=== PATIENT | female | born 1990 | race Caucasian/White ===

== ENCOUNTER 2017-11-20 13:02 | Emergency (ER) | payer OTHER, BC ==
[~2017-11-20] VITALS: Ht 165.1 cm; Wt 138.2 kg
[2017-11-20 13:05] VITALS: TEMP 36.8; Ht 165.1 cm; Wt 138.2 kg
[2017-11-20] MEDS ORDERED: IBUPROFEN 600 MG TAB PO STA (13:29)
--- NOTE | 2017-11-20 14:06 | DIAGNOSTIC IMAGING REPORT ---
L RIBS UNILATERAL WITH PA CHEST CLINICAL HISTORY: 27 years-old Female presenting with L rib pain - heavy lifting. TECHNIQUE: Frontal and oblique views of the left ribs as well as PA view of the chest were obtained. COMPARISON: None. FINDINGS: Cardiomediastinal silhouette normal. Lungs and pleural spaces clear. Upper abdomen normal. No displaced left rib fracture. IMPRESSION: 1. No acute cardiopulmonary disease. 2. No displaced left rib fracture. Electronically signed by: Rajinder Ramirez M.D. 11/20/2017 2:04 PM Dictated Date/Time: 11/20/2017 1:58 PM
[2017-11-20 14:17] VITALS: BP 133/89; PULSE 78; O2SAT 97
--- NOTE | 2017-11-20 14:21 | EMERGENCY ROOM VISIT NOTE ---
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 The patient reports that at approximately 2 AM, she was attempting to lift a gentleman at the [facility]. She reports that he is a heavy gentleman, and has to both lift and pull the patient up to an upright position. The patient reports immediate onset of left chest wall discomfort. She reports that the pain has somewhat worsened. The pain is worsened with movement and reaching overhead. She has not noticed any shortness of breath. She denies any pain extending into the neck, abdomen or back. She does complain of some mild discomfort around the left shoulder blade as well. She currently rates her discomfort a 3 out of 10 that is quickly elevated to a 7 out of 10 with movement or use of the arm. Review of Systems 10 system review was performed and was negative except for pertinent positives and negatives as indicated in history of present illness Past Medical/Surgical History Medical Problems: (1) No significant past medical history Surgical Problems: (1) History of wisdom tooth extraction Family History FH: cancer FH: diabetes mellitus FH: heart disease FH: hypertension FH: kidney disease Social History Smoking Status: Current Every Day Smoker Alcohol Use: none Marital Status: Housing Status: lives with family Occupation Status: employed Current/Historical Medications No Active Prescriptions or Reported Meds Physical Exam Vital Signs Date Time Temp Pulse Resp B/P (MAP) Pulse Ox O2 Delivery O2 Flow Rate FiO2 11/20/17 14:17 78 133/89 97 Room Air 11/20/17 13:05 36.8 89 20 130/78 100 Room Air Physical Exam CONSTITUTIONAL: Morbidly obese female, alert and oriented X 3 with positive affect. Patient appears in mild discomfort from pain. HEENT: Normocephalic, atraumatic. Pupils equal, round and reactive. NECK: Full active range of motion without discomfort. No tenderness to palpation through the central cervical spine or cervical musculature. RESPIRATORY: Clear to auscultation bilaterally with no wheezing, crackles, rhonchi or stridor. The breathing does not appear to cause any worsening discomfort. CARDIOVASCULAR: Regular rate and rhythm with no murmurs, rubs or gallops. GASTROINTESTINAL: Bowel sounds present in all quadrants. Protuberant but soft and nontender to palpation. 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 She has mild discomfort under the left breast as well as left interscapular region. Patient has no other tenderness to palpation through the clavicle, acromioclavicular joint or bicipital groove. Patient has no significant worsening pain with range of motion of the left shoulder. INTEGUMENTARY: No rash or other significant dermatologic conditions noted. NEUROLOGIC: No focal neurologic deficits noted. Left upper extremity is sensory intact. Medical Decision & Procedures ER Provider Diagnostic Interpretation: My interpretation of left rib x-rays with a PA chest view does not show any obvious rib fractures or pneumothorax. Radiologist report is as follows: L RIBS UNILATERAL WITH PA CHEST CLINICAL HISTORY: 27 years-old Female presenting with L rib pain - heavy lifting. TECHNIQUE: Frontal and oblique views of the left ribs as well as PA view of the chest were obtained. COMPARISON: None. FINDINGS: Cardiomediastinal silhouette normal. Lungs and pleural spaces clear. Upper abdomen normal. No displaced left rib fracture. IMPRESSION: 1. No acute cardiopulmonary disease. 2. No displaced left rib fracture. Medications Administered Medications (Trade) Dose Ordered Sig/Camelia Route Start Time Stop Time Status Last Admin Dose Admin Ibuprofen (Motrin Tab) 600 mg NOW STAT PO 11/20/17 13:29 11/20/17 13:30 DC 11/20/17 13:36 600 MG ED Course Patient history and physical exam were performed. Nurse's notes were reviewed. Vital signs were reviewed and were normal. The patient was administered ibuprofen 600 mg for pain. X-rays of the left ribs with a PA chest view was normal. The patient was advised that her history and clinical exam findings are most consistent with a chest wall strain. The patient was encouraged to avoid any heavy lifting or other activities until symptoms improve. A note was provided for light duty at work. The patient was encouraged to intermittently apply ice to the chest wall. Ibuprofen and Tylenol in alternating fashion as needed for additional pain relief. I did suggest follow-up with her Worker's Compensation physician if symptoms are not improving within the next 5-7 days. The patient was happy with plan of care, voiced understanding of all discharge instructions, and rated her discomfort a 3 out of 10 at the conclusion of my exam. Medical Decision Medication Reconcilliation Current Medication List: was personally reviewed by me Blood Pressure Screening Patient's blood pressure: Normal blood pressure Impression Primary Impression: Muscle strain of anterior chest wall Additional Impression: Work related injury Departure Information Prescriptions No Active Prescriptions or Reported Meds Referrals No Doctor, Assigned (PCP) Patient Instructions [facility] Problem Qualifiers
== END 2017-11-20 14:36 | disposition home or self-care (01) ==
LOC: C.EDB 13:04
DX: S29.011A Strain of muscle and tendon of front wall of thorax, initial encounter (principal); X50.0XXA Overexertion from strenuous movement or load, initial encounter; Y99.0 Civilian activity done for income or pay; F17.210 Nicotine dependence, cigarettes, uncomplicated; E66.01 Morbid (severe) obesity due to excess calories; Z80.9 Family history of malignant neoplasm, unspecified; Z83.3 Family history of diabetes mellitus; Z82.49 Family history of ischemic heart disease and other diseases of the circulatory system; Z84.1 Family history of disorders of kidney and ureter